=== PATIENT | female | born 1955 | race Caucasian/White ===

== ENCOUNTER 2018-03-12 06:59 | Day surgery (SDC) | payer OTHER ==
[~2018-03-12] VITALS: Ht 162.6 cm; Wt 98.0 kg
[~2018-03-12 06:59] MED LIST: IBUP800 PO; Venlafaxine HC225 MG PO
== END 2018-03-12 23:04 | disposition home or self-care (01) ==
LOC: ORSCMMR 06:59 → ORD 08:30 → ORSCMMR 23:04
PROVIDERS: Internal Medicine Gastroenterology
PROC: 0DJD8ZZ Inspection of Lower Intestinal Tract, Via Natural or Artificial Opening Endoscopic (ICD-10-PCS; principal; 2018-03-12 08:30)
DX: Z12.11 Encounter for screening for malignant neoplasm of colon (principal); K57.30 Diverticulosis of large intestine without perforation or abscess without bleeding; I10 Essential (primary) hypertension; F32.9 Major depressive disorder, single episode, unspecified; Z79.899 Other long term (current) drug therapy
CPT/HCPCS: J7120

== ENCOUNTER → 2020-09-21 | Outpatient (CLI) | payer MEDICARE, OTHER | LOC: LAB 15:39 → LAB SHORT 15:39 | DX: R82.90 Unspecified abnormal findings in urine (principal) | CPT/HCPCS: 87077; 87086; 87186 ==

== ENCOUNTER → 2020-12-21 | Outpatient (CLI) | payer MEDICARE, OTHER ==
[~2020-12-21] MED LIST changes: +METO25 PO; +POTA10T PO; +XARELTO20 MG PO
== END ==
LOC: LAB SHORT 15:00 → PLD 15:00
DX: C44.519 Basal cell carcinoma of skin of other part of trunk (principal)
CPT/HCPCS: 88305

== ENCOUNTER 2021-02-26 10:03 | Observation (INO) | payer MEDICARE, OTHER ==
[~2021-02-26] VITALS: Ht 162.6 cm; Wt 98.1 kg
[~2021-02-26 10:03] MED LIST changes: -METO25 PO; -POTA10T PO; -XARELTO20 MG PO
[2021-02-26 10:42] LABS: BASOPHILS ABSOLUTE AUTO 0.04 K/mm3 (0.00-0.23); BASOPHILS PERCENT AUTO 0 % (0-2); EOSINOPHILS ABSOLUTE AUTO 0.53 K/mm3 (0.00-0.68); EOSINOPHILS PERCENT AUTO 6 % (0-6); Hematocrit 39.5 % (33.0-51.0); Hemoglobin 13.5 g/dL (11.5-16.0); IMMATURE GRAN ABSOLUTE AUTO 0.02 K/mm3 (0.00-0.10); IMMATURE GRAN PERCENT AUTO 0 % (0-1); LYMPHOCYTES PERCENT AUTO 18 % (21-46); MONOCYTES ABSOLUTE AUTO 0.78 K/mm3 (0.16-1.47); MONOCYTES PERCENT AUTO 8 % (4-13); Mean Corpuscular HGB 30.9 pg (26.0-34.0); Mean Corpuscular HGB Conc 34.2 g/dL (31.5-36.5); Mean Corpuscular Volume 90 fL (80-100); Mean Platelet Volume 10.2 fL (9.1-12.4); NEUTROPHILS ABSOLUTE AUTO 6.19 K/mm3 (1.96-9.15); NEUTROPHILS PERCENT AUTO 67 % (41-73); Platelet Count 308 K/mm3 (150-400); RDW Coefficient Variation 12.6 % (11.7-14.2); Red Blood Cell Count 4.37 M/mm3 (3.80-5.20); White Blood Cell Count 9.26 K/mm3 (4.00-11.30)
[2021-02-26 11:09] LABS: Alanine Aminotransfer (ALT/SGP 26 U/L (12-78); Albumin, Blood 3.7 g/dL (3.4-5.0); Albumin/Globulin Ratio 1.1 (0.8-1.8); Alk Phos 93 U/L (50-136); Anion Gap 5 mmol/L (6-16); Aspartate Aminotrans (AST/SGOT 12 U/L (12-37); Bilirubin, Total 0.3 mg/dL (0.1-1.0); Blood Urea Nitrogen 13 mg/dL (8-24); Bun/Creatinine Ratio 25.1 (12.0-20.0); CO2, Blood 27 mmol/L (21-32); Calcium, Blood 8.3 mg/dL (8.5-10.1); Chloride, Blood 111 mmol/L (98-108); Creatinine, Blood 0.52 mg/dL (0.40-1.00); Globulin, Blood 3.5 g/dL (2.2-4.0); Glomerular Filtration Rate >60 (60-); Glucose, Blood 147 mg/dL (70-99); Magnesium, Blood 2.4 mg/dL (1.6-2.4); Potassium, Blood 3.5 mmol/L (3.5-5.5); Sodium, Blood 143 mmol/L (136-145); Total Protein, Blood 7.2 g/dL (6.4-8.2); Troponin I 0.232 ng/mL (0.000-0.040)
[2021-02-26 14:04] LABS: International Normalized Ratio 0.9; Prothrombin Time Results 9.7 Sec (9.7-11.5)
--- NOTE | 2021-02-26 18:28 | NUR ---
SHIFT SUMMARY PATIENT ARRIVED FROM ED WITH CARDIZEM DRIP AT 10 MG/HR WITH HEART RATE IN 120s-160s. PATIENT IS ALERT AND ORIENTED, DENIES CHEST PAIN/PRESSURE SINCE ARRIVAL TO UNIT. PATIENT IS COOPERATIVE WITH CARE, CALLS APPROPRIATELY. STANDBY ASSIST TO BEDSIDE COMMODE. CARDIZEM TITRATED UP TO 15 MG/HR, BP TOLERATING WELL. HEART RATE REMAINED ELEVATED AT 130s-150s, DR. EDWARDS NOTIFIED AND ORDERS FOR PO METOPROLOL TARTRATE GIVEN. PATIENT CONTINUED TO TOLERATE MEDICATIONS WITH ADEQUATE BLOOD PRESSURE, REMAINED IN 130s SBP. PATIENT'S HEART RATE NOW RUNNING 100s-110s.
[2021-02-27 04:42] LABS: Anion Gap 3 mmol/L (6-16); Blood Urea Nitrogen 19 mg/dL (8-24); Bun/Creatinine Ratio 24.4 (12.0-20.0); CO2, Blood 28 mmol/L (21-32); Calcium, Blood 8.3 mg/dL (8.5-10.1); Chloride, Blood 111 mmol/L (98-108); Creatinine, Blood 0.78 mg/dL (0.40-1.00); Glomerular Filtration Rate >60 (60-); Glucose, Blood 92 mg/dL (70-99); Magnesium, Blood 2.5 mg/dL (1.6-2.4); Potassium, Blood 3.7 mmol/L (3.5-5.5); Sodium, Blood 142 mmol/L (136-145)
--- NOTE | 2021-02-27 05:33 | NUR ---
SHIFT SUMMARY PT AXO. ON SHIFT START, CARDIZEM GTT AT RATE OF 15ML/HR. EVENTUALLY TITRATED OFF WITH CONVERSION TO SR IN THE 60'S. PT HAS MAINTAINED IN SR SINCE CONVERION. VSS POST. ON RA. PT DENYING CP/PRESSURE/SOB THIS SHIFT. OTHERWISE, PT RESTING OFF AND ON T/O SHIFT. WILL CONTINUE TO MONITOR UNTIL SHIFT CHANGE.
[2021-02-27] MEDS ORDERED: METO25 PO (11:56)
[2021-02-27] MEDS ORDERED: XARELTO20 MG PO (11:57)
[2021-02-27] MEDS ORDERED: POTA10T PO (11:58)
--- NOTE | 2021-02-27 12:35 | NUR ---
PATIENT DENIED CHEST PAIN/PRESSURE THIS SHIFT, ALERT AND ORIENTED, VSS. PATIENT PROVIDED DISCHARGE INFO REGARDING FOLLOW UP PLANS, REASONS TO RETURN TO THE HOSPITAL, AND MEDICATION INFORMATION. PATIENT VERBALIZED UNDERSTANDING, NO SIGNS OF ACUTE DISTRESS.
== END 2021-02-27 12:31 | disposition home or self-care (01) ==
LOC: ER 10:03 → ERHOLD 10:04 → PCU 15:33
PROVIDERS: Emergency Medicine; ADMIT Internal Medicine
DX: I48.0 Paroxysmal atrial fibrillation (principal); I21.A1 Myocardial infarction type 2; F32.9 Major depressive disorder, single episode, unspecified; E66.01 Morbid (severe) obesity due to excess calories; Z68.35 Body mass index [BMI] 35.0-35.9, adult
CPT/HCPCS: 36415; 71045; 80048; 80053; 83735; 83880; 84443; 84484; 85025; 85610; 85730; 93005; 93010; 96365; 96366; 96376; 99285-25; A9270; C9113; G0378

== ENCOUNTER 2021-08-31 14:24 | Observation (INO) | payer MEDICARE, OTHER ==
[~2021-08-31] VITALS: Ht 162.6 cm; Wt 97.5 kg
[~2021-08-31 14:24] MED LIST changes: +METO25 PO; +POTA10T PO; +XARELTO20 MG PO
[2021-08-31 15:02] LABS: BASOPHILS ABSOLUTE AUTO 0.08 K/mm3 (0.00-0.23); BASOPHILS PERCENT AUTO 1 % (0-2); EOSINOPHILS ABSOLUTE AUTO 0.29 K/mm3 (0.00-0.68); EOSINOPHILS PERCENT AUTO 3 % (0-6); Hematocrit 39.6 % (33.0-51.0); Hemoglobin 13.2 g/dL (11.5-16.0); IMMATURE GRAN ABSOLUTE AUTO 0.02 K/mm3 (0.00-0.10); IMMATURE GRAN PERCENT AUTO 0 % (0-1); LYMPHOCYTES ABSOLUTE AUTO 2.85 K/mm3 (0.84-5.20); LYMPHOCYTES PERCENT AUTO 31 % (21-46); MONOCYTES ABSOLUTE AUTO 0.79 K/mm3 (0.16-1.47); MONOCYTES PERCENT AUTO 9 % (4-13); Mean Corpuscular HGB 31.1 pg (26.0-34.0); Mean Corpuscular HGB Conc 33.3 g/dL (31.5-36.5); Mean Corpuscular Volume 93 fL (80-100); Mean Platelet Volume 9.8 fL (9.1-12.4); NEUTROPHILS ABSOLUTE AUTO 5.24 K/mm3 (1.96-9.15); NEUTROPHILS PERCENT AUTO 57 % (41-73); Platelet Count 377 K/mm3 (150-400); RDW Coefficient Variation 12.6 % (11.7-14.2); RDW Standard Deviation 43.4 fL (35.1-46.3); Red Blood Cell Count 4.24 M/mm3 (3.80-5.20); White Blood Cell Count 9.27 K/mm3 (4.00-11.30)
[2021-08-31 15:34] LABS: Albumin/Globulin Ratio 1.1 (0.8-1.8); Bilirubin, Total 0.2 mg/dL (0.1-1.0); Bun/Creatinine Ratio 18.8 (12.0-20.0); Calcium, Blood 9.2 mg/dL (8.5-10.1); Creatinine, Blood 0.96 mg/dL (0.40-1.00); Globulin, Blood 3.5 g/dL (2.2-4.0); Potassium, Blood 3.5 mmol/L (3.5-5.5); Total Protein, Blood 7.5 g/dL (6.4-8.2); Troponin I 0.182 ng/mL (0.000-0.040)
[2021-08-31] MEDS ORDERED: METO50ER PO (16:22)
[2021-08-31] MEDS ORDERED: EFFEXOR XR150 MG PO (16:23)
[2021-08-31 18:06] LABS: SARS-Cov-2 (COVID-19) PCR, MMC NEGATIVE (NEGATIVE)
--- NOTE | 2021-08-31 18:40 | NUR ---
PT AOX4 AND COOPERATIVE OF CARE. PT ORIENTED TO ROOM AND CALL LIGHT. BED IN LOWEST POSITION PT INDEPENDENT. PT DENIES ANY PAIN OR DISCOMFORT WILL CONTINUE TO MONITOR.
--- NOTE | 2021-08-31 19:00 | NUR ---
ASSUMED CARE RECEIVED REPORT FROM ANGIE RAMIREZ. PT RESTING, IN NAD. NO ACUTE NEEDS ASSESSED AT THIS TIME, PT SPEAKING TO FAMILY ON PHONE. CALL LIGHT, POSSESSIONS IN REACH.
--- NOTE | 2021-08-31 21:09 | NUR ---
SPOKE TO DR. MONTALVO REGARDING PT'S INCREASED TROPONIN. NO NEW ORDERS RECEIVED. CONTINUE TO MONITOR.
--- NOTE | 2021-09-01 04:27 | NUR ---
SHIFT SUMMARY PT RESTING, IN NAD. NO ACUTE CONCERNS TO REPORT OVERNIGHT, HR AND RHTHYM STABLE OVERNIGHT, NO TELEMETRY EVENTS REPORTED; PT REPORTS "FEELING BACK TO NORMAL." DENIES CP/PRESSURE/SOB. VS REVIEWED,WNL. PT DENIES NEEDS AT THIS TIME. CALL LIGHT, POSSESSIONS IN REACH, BED IN LOW AND LOCKED POSITION. WILL CONTINUE TO PROVIDE CARE UNTIL REPORT GIVEN TO ONCOMING RN.
[2021-09-01 05:04] LABS: Hematocrit 32.4 % (33.0-51.0); Hemoglobin 10.9 g/dL (11.5-16.0); Mean Corpuscular HGB 31.5 pg (26.0-34.0); Mean Corpuscular HGB Conc 33.6 g/dL (31.5-36.5); Mean Corpuscular Volume 94 fL (80-100); Platelet Count 279 K/mm3 (150-400); RDW Coefficient Variation 12.8 % (11.7-14.2); RDW Standard Deviation 43.8 fL (35.1-46.3); Red Blood Cell Count 3.46 M/mm3 (3.80-5.20); White Blood Cell Count 7.09 K/mm3 (4.00-11.30)
[2021-09-01 05:26] LABS: Anion Gap 5 mmol/L (6-16); Blood Urea Nitrogen 16 mg/dL (8-24); Bun/Creatinine Ratio 22.3 (12.0-20.0); CO2, Blood 26 mmol/L (21-32); Calcium, Blood 8.5 mg/dL (8.5-10.1); Chloride, Blood 112 mmol/L (98-108); Creatinine, Blood 0.72 mg/dL (0.40-1.00); Glomerular Filtration Rate >60 (60-); Glucose, Blood 89 mg/dL (70-99); Potassium, Blood 3.6 mmol/L (3.5-5.5); Sodium, Blood 143 mmol/L (136-145); Troponin I 0.251 ng/mL (0.000-0.040)
--- NOTE | 2021-09-01 13:01 | NUR ---
Pateint is alert and oriented x3 , able to make needs known . Denies any pain . Continue on metoprolol for rate control. vital signs are stable. Independent with ADLS. Denies any pain, headache, dizziness or shortness of breath. Patient discharged home in stable condition and DC instruction was and understood.
== END 2021-09-01 12:19 | disposition home or self-care (01) ==
LOC: ER 14:24 → MEDS 14:25
PROVIDERS: Emergency Medicine; Physician Assistant; ADMIT Internal Medicine
DX: I48.0 Paroxysmal atrial fibrillation (principal); R77.8 Other specified abnormalities of plasma proteins; I10 Essential (primary) hypertension; F32.A Depression, unspecified; E66.01 Morbid (severe) obesity due to excess calories; Z20.822 Contact with and (suspected) exposure to COVID-19; Z79.01 Long term (current) use of anticoagulants; Z68.36 Body mass index [BMI] 36.0-36.9, adult
CPT/HCPCS: 36415; 71045; 80048; 80053; 83735; 84484; 85025; 85027; 93005; 93010; 96374; 96375; 99285-25; A9270; G0378; J7030; U0004

== ENCOUNTER → 2021-09-28 | Outpatient (CLI) | payer MEDICARE, OTHER ==
[~2021-09-28] MED LIST changes: +EFFEXOR XR150 MG PO; +METO50ER PO
== END ==
LOC: LAB 18:22 → LAB SHORT 18:22
DX: R82.998 Other abnormal findings in urine (principal)
CPT/HCPCS: 87077; 87086; 87186

== ENCOUNTER 2022-05-17 08:52 | Emergency (ER) | payer MEDICARE, OTHER ==
[~2022-05-17] VITALS: Ht 154.9 cm; Wt 99.8 kg
[~2022-05-17 08:52] MED LIST changes: +ATOR10 PO; +Aspir 8181 MG PO; +DILTIAZEM 24HR120 M2 PO; +SOTO80 PO
[2022-05-17 10:06] LABS: BASOPHILS ABSOLUTE AUTO 0.05 K/mm3 (0.00-0.23); BASOPHILS PERCENT AUTO 1 % (0-2); EOSINOPHILS ABSOLUTE AUTO 0.34 K/mm3 (0.00-0.68); EOSINOPHILS PERCENT AUTO 5 % (0-6); Hematocrit 38.6 % (33.0-51.0); Hemoglobin 12.6 g/dL (11.5-16.0); IMMATURE GRAN ABSOLUTE AUTO 0.02 K/mm3 (0.00-0.10); IMMATURE GRAN PERCENT AUTO 0 % (0-1); LYMPHOCYTES ABSOLUTE AUTO 2.04 K/mm3 (0.84-5.20); LYMPHOCYTES PERCENT AUTO 30 % (21-46); MONOCYTES ABSOLUTE AUTO 0.72 K/mm3 (0.16-1.47); MONOCYTES PERCENT AUTO 10 % (4-13); Mean Corpuscular HGB 30.3 pg (26.0-34.0); Mean Corpuscular HGB Conc 32.6 g/dL (31.5-36.5); Mean Corpuscular Volume 93 fL (80-100); NEUTROPHILS ABSOLUTE AUTO 3.74 K/mm3 (1.96-9.15); NEUTROPHILS PERCENT AUTO 54 % (41-73); Platelet Count 306 K/mm3 (150-400); RDW Coefficient Variation 12.8 % (11.7-14.2); RDW Standard Deviation 44.1 fL (35.1-46.3); Red Blood Cell Count 4.16 M/mm3 (3.80-5.20); White Blood Cell Count 6.91 K/mm3 (4.00-11.30)
[2022-05-17 10:26] LABS: Albumin, Blood 3.6 g/dL (3.4-5.0); Albumin/Globulin Ratio 1.1 (0.8-1.8); Bilirubin, Total 0.2 mg/dL (0.1-1.0); Bun/Creatinine Ratio 18.7 (12.0-20.0); Calcium, Blood 9.1 mg/dL (8.5-10.1); Creatinine, Blood 0.59 mg/dL (0.40-1.00); Globulin, Blood 3.4 g/dL (2.2-4.0); Potassium, Blood 4.6 mmol/L (3.5-5.5)
== END 2022-05-17 10:56 | disposition home or self-care (01) ==
LOC: ER 08:52
PROVIDERS: Emergency Medicine
DX: I48.91 Unspecified atrial fibrillation (principal); I10 Essential (primary) hypertension; Z79.899 Other long term (current) drug therapy; Z79.82 Long term (current) use of aspirin; Z79.01 Long term (current) use of anticoagulants
CPT/HCPCS: 36415; 71045; 80053; 85025; 93005; 93010

== ENCOUNTER 2022-09-08 08:04 | Observation (INO) | payer MEDICARE, OTHER ==
[~2022-09-08] VITALS: Ht 162.6 cm; Wt 98.6 kg
[2022-09-08 08:50] LABS: BASOPHILS ABSOLUTE AUTO 0.06 K/mm3 (0.00-0.23); BASOPHILS PERCENT AUTO 1 % (0-2); EOSINOPHILS ABSOLUTE AUTO 0.28 K/mm3 (0.00-0.68); EOSINOPHILS PERCENT AUTO 3 % (0-6); Hematocrit 39.8 % (33.0-51.0); Hemoglobin 12.9 g/dL (11.5-16.0); IMMATURE GRAN ABSOLUTE AUTO 0.02 K/mm3 (0.00-0.10); IMMATURE GRAN PERCENT AUTO 0 % (0-1); LYMPHOCYTES ABSOLUTE AUTO 1.69 K/mm3 (0.84-5.20); LYMPHOCYTES PERCENT AUTO 19 % (21-46); MONOCYTES ABSOLUTE AUTO 0.67 K/mm3 (0.16-1.47); MONOCYTES PERCENT AUTO 8 % (4-13); Mean Corpuscular HGB 30.4 pg (26.0-34.0); Mean Corpuscular HGB Conc 32.4 g/dL (31.5-36.5); Mean Corpuscular Volume 94 fL (80-100); Mean Platelet Volume 9.9 fL (9.1-12.4); NEUTROPHILS ABSOLUTE AUTO 5.97 K/mm3 (1.96-9.15); NEUTROPHILS PERCENT AUTO 69 % (41-73); Platelet Count 333 K/mm3 (150-400); RDW Coefficient Variation 13.2 % (11.7-14.2); RDW Standard Deviation 45.2 fL (35.1-46.3); Red Blood Cell Count 4.25 M/mm3 (3.80-5.20); White Blood Cell Count 8.69 K/mm3 (4.00-11.30)
[2022-09-08 09:08] LABS: Albumin, Blood 3.5 g/dL (3.4-5.0); Bilirubin, Total 0.4 mg/dL (0.1-1.0); Calcium, Blood 8.4 mg/dL (8.5-10.1); Creatinine, Blood 0.58 mg/dL (0.40-1.00); Globulin, Blood 3.5 g/dL (2.2-4.0); Potassium, Blood 3.9 mmol/L (3.5-5.5)
--- NOTE | 2022-09-08 14:57 | NUR ---
Pt converted to normal sinus rhtyhm.
--- NOTE | 2022-09-08 17:38 | NUR ---
Ambulatory from the recliner to the bathroom to void. Used the walker and one staff member needed for minimal assistance. She denies any dyspnea and no shortness of breath was noted with the activity to and from the toilet. Sitting in recliner now, dinner tray with soft bite sized food provided for her.
[2022-09-09 04:18] LABS: Hematocrit 36.3 % (33.0-51.0); Hemoglobin 11.7 g/dL (11.5-16.0); Mean Corpuscular HGB 30.2 pg (26.0-34.0); Mean Corpuscular HGB Conc 32.2 g/dL (31.5-36.5); Mean Corpuscular Volume 94 fL (80-100); Mean Platelet Volume 9.8 fL (9.1-12.4); Platelet Count 318 K/mm3 (150-400); RDW Coefficient Variation 13.2 % (11.7-14.2); RDW Standard Deviation 45.2 fL (35.1-46.3); Red Blood Cell Count 3.88 M/mm3 (3.80-5.20); White Blood Cell Count 7.53 K/mm3 (4.00-11.30)
[2022-09-09 04:53] LABS: Bun/Creatinine Ratio 37.3 (12.0-20.0); Calcium, Blood 9.1 mg/dL (8.5-10.1); Creatinine, Blood 0.62 mg/dL (0.40-1.00); Magnesium, Blood 2.2 mg/dL (1.6-2.4); Potassium, Blood 3.7 mmol/L (3.5-5.5)
--- NOTE | 2022-09-09 05:11 | NUR ---
SHIFT SUMMARY PT IS A/Ox4 AND IS COOPERATIVE WITH THE CARE GIVEN BY STAFF. DURING ADMISSION, PT WAS AFIB WITH RVR, BUT CONVERTED TO SR ON 09/08. EKG THIS AM WAS UNREMARKABLE WITH MINIMAL CHANGES TO EKG'S DONE DURING HER STAY. PT HAS NOT REPORTED ANY CP OR CHEST PRESSURE T/O THE SHIFT AND HER BP/HR CONTINUE TO BE STABLE. PT IS AMBULTORY WITH NO SIGNS OF SOB OR DYSPNEA WITH AMBULATION. PT REPORT GIVEN BY DAYSHIFT NURSES, PT MIGHT GO HOME TODAY 09/09 DUE TO NO ACUTE CHANGES. VSS/NADN T/O THE SHIFT
[2022-09-09] MEDS ORDERED: Acetaminophen650 M1 PO (15:05)
== END 2022-09-09 15:29 | disposition home or self-care (01) ==
LOC: ER 08:04 → PCU 08:05
PROVIDERS: Nurse Practitioner Acute Care; Physician Assistant; ADMIT Internal Medicine
DX: I48.0 Paroxysmal atrial fibrillation (principal); I21.A1 Myocardial infarction type 2; I25.10 Atherosclerotic heart disease of native coronary artery without angina pectoris; F32.A Depression, unspecified; F41.9 Anxiety disorder, unspecified; Z79.01 Long term (current) use of anticoagulants
CPT/HCPCS: 36415; 71045; 80048; 80053; 83735; 83880; 84484; 85025; 85027; 93005; 93010; A9270; G0378

== ENCOUNTER 2023-03-31 21:49 | Inpatient (IN) | payer MEDICARE, OTHER ==
[~2023-03-31] VITALS: Ht 162.6 cm; Wt 98.3 kg
[~2023-03-31 21:49] MED LIST changes: +Acetaminophen650 M1 PO
[2023-03-31 22:11] LABS: BASOPHILS ABSOLUTE AUTO 0.06 K/mm3 (0.00-0.23); BASOPHILS PERCENT AUTO 1 % (0-2); EOSINOPHILS ABSOLUTE AUTO 0.29 K/mm3 (0.00-0.68); EOSINOPHILS PERCENT AUTO 3 % (0-6); Hematocrit 37.9 % (33.0-51.0); Hemoglobin 12.4 g/dL (11.5-16.0); IMMATURE GRAN ABSOLUTE AUTO 0.02 K/mm3 (0.00-0.10); IMMATURE GRAN PERCENT AUTO 0 % (0-1); LYMPHOCYTES ABSOLUTE AUTO 2.64 K/mm3 (0.84-5.20); LYMPHOCYTES PERCENT AUTO 27 % (21-46); MONOCYTES PERCENT AUTO 9 % (4-13); Mean Corpuscular HGB 30.3 pg (26.0-34.0); Mean Corpuscular HGB Conc 32.7 g/dL (31.5-36.5); Mean Corpuscular Volume 93 fL (80-100); Mean Platelet Volume 9.4 fL (9.1-12.4); NEUTROPHILS ABSOLUTE AUTO 6.04 K/mm3 (1.96-9.15); NEUTROPHILS PERCENT AUTO 61 % (41-73); Platelet Count 367 K/mm3 (150-400); RDW Coefficient Variation 12.6 % (11.7-14.2); RDW Standard Deviation 42.9 fL (35.1-46.3); Red Blood Cell Count 4.09 M/mm3 (3.80-5.20); White Blood Cell Count 9.95 K/mm3 (4.00-11.30)
[2023-03-31 22:31] LABS: Albumin, Blood 3.8 g/dL (3.4-5.0); Albumin/Globulin Ratio 1.1 (0.8-1.8); Bilirubin, Total 0.2 mg/dL (0.1-1.0); Bun/Creatinine Ratio 43.8 (12.0-20.0); Calcium, Blood 8.8 mg/dL (8.5-10.1); Creatinine, Blood 0.64 mg/dL (0.40-1.00); Globulin, Blood 3.5 g/dL (2.2-4.0); Total Protein, Blood 7.3 g/dL (6.4-8.2)
[2023-04-01] VITALS (12 sets, daily range): BP systolic 86–135; BP diastolic 51–123
[2023-04-01] MEDS ORDERED: Magnesium500 M1 PO (01:57)
[2023-04-01] MEDS ORDERED: CENTRUM SILVER1 EAC2 PO (01:58)
[2023-04-01] MEDS ORDERED: [UNRECOGNIZED DRUG - OTHER] PO (01:58)
[2023-04-01] MEDS ORDERED: CLOBETASOL EMOL15 G1 (01:59)
[2023-04-01] MEDS ORDERED: Ketoconazole120 ML TOP (01:59)
[2023-04-01 04:52] LABS: BASOPHILS ABSOLUTE AUTO 0.08 K/mm3 (0.00-0.23); BASOPHILS PERCENT AUTO 1 % (0-2); EOSINOPHILS ABSOLUTE AUTO 0.26 K/mm3 (0.00-0.68); EOSINOPHILS PERCENT AUTO 3 % (0-6); Hematocrit 37.7 % (33.0-51.0); Hemoglobin 12.5 g/dL (11.5-16.0); IMMATURE GRAN ABSOLUTE AUTO 0.03 K/mm3 (0.00-0.10); IMMATURE GRAN PERCENT AUTO 0 % (0-1); LYMPHOCYTES ABSOLUTE AUTO 2.25 K/mm3 (0.84-5.20); LYMPHOCYTES PERCENT AUTO 23 % (21-46); MONOCYTES ABSOLUTE AUTO 0.74 K/mm3 (0.16-1.47); MONOCYTES PERCENT AUTO 7 % (4-13); Mean Corpuscular HGB 30.8 pg (26.0-34.0); Mean Corpuscular HGB Conc 33.2 g/dL (31.5-36.5); Mean Corpuscular Volume 93 fL (80-100); Mean Platelet Volume 10.2 fL (9.1-12.4); NEUTROPHILS ABSOLUTE AUTO 6.59 K/mm3 (1.96-9.15); NEUTROPHILS PERCENT AUTO 66 % (41-73); Platelet Count 394 K/mm3 (150-400); RDW Coefficient Variation 12.8 % (11.7-14.2); RDW Standard Deviation 43.9 fL (35.1-46.3); Red Blood Cell Count 4.06 M/mm3 (3.80-5.20); White Blood Cell Count 9.95 K/mm3 (4.00-11.30)
[2023-04-01 05:20] LABS: Albumin, Blood 3.7 g/dL (3.4-5.0); Albumin/Globulin Ratio 1.1 (0.8-1.8); Bilirubin, Total 0.2 mg/dL (0.1-1.0); Calcium, Blood 8.3 mg/dL (8.5-10.1); Creatinine, Blood 0.57 mg/dL (0.40-1.00); Globulin, Blood 3.3 g/dL (2.2-4.0); Magnesium, Blood 2.4 mg/dL (1.6-2.4); Potassium, Blood 3.8 mmol/L (3.5-5.5); Thyroid Stimulating Hormone 3.03 uIU/mL (0.360-4.800)
--- NOTE | 2023-04-01 07:17 | NUR ---
Received report from Noc RN. Patient is sleeping and arouses slowly with clear speech. She was alert enough to comunicate her needs. She is on RA and sats >90%. She has 2 IV's: 20ga IV in RA and is infusing Cardizem at 5 mg/hr and 20ga RAC and is flushed and SL'd. She is up with assist to bathroom. MAEW. Denies any current needs. She remains in A-fib low 100's.
--- NOTE | 2023-04-01 11:20 | NUR ---
Dr has been by and no new orders. She has been anxious and states not able to sleep. When Dr came by stated to give Tylenol but when went in room patient sleeping and did not want to awake. She remians on cardizem at 5mg/hr. She continues on RA and sats >90%. She remains independent in room.
--- NOTE | 2023-04-01 15:37 | NUR ---
No significant changes with patient. She remains in A-fib and is currently 130-140 and increaseing Cardizem gtt to 10 mg/hr and will monitor BP chganges. She remains on RA and sats >90%. She continues to be independent in room. I am allowing her to sleep with lights off as she states has been unable to sleep at night. VINAYAK. She calls approppriately for assisstance.
--- NOTE | 2023-04-01 18:44 | NUR ---
Patient remains in sinus arrythmia and has rates in the 80's. She is alert and oriented and is independent in room to bathroom and positioning. She tolerated dinner well. She is SL'd.
--- NOTE | 2023-04-01 23:00 | NUR ---
ASSUMPTION OF CARE: PATIENT IS ALERT AND ORIENTED, PLEASANT COOPERATIVE WITH CARE, CARDIZEM OFF AND IN SINUS ARRHYTHMIA WITH BIGEM AND PVC'S FROM THIS RN REVIEWING. VSS WILL CONTINUE TO MONITOR UNTIL SHFIT CHANGE, DENIES CHEST PAIN PRESSURE OR SOB. BM TONIGHT, ENDORSES SOME VERY MINOR DIFFICULTY DENIES NEED FOR BOWEL CARE. PATIENT INDEPENDENT IN THE ROOM RECIEVED SOTALOL THIS EVENING, WHICH IS HOME MED. TELE MONITORING IN PLACE, WILL MONITOR ANY CHANGES AND QT. PATIENT HAS DO NOT WAKE UNTIL [address] WILL MONITOR PRN AND REQUESTS. NO CONCERNS FROM THIS RN AT THIS TIME
[2023-04-02 07:30] LABS: Bun/Creatinine Ratio 36.4 (12.0-20.0); Calcium, Blood 8.8 mg/dL (8.5-10.1); Creatinine, Blood 0.58 mg/dL (0.40-1.00); Potassium, Blood 4.2 mmol/L (3.5-5.5)
[2023-04-02 08:08] VITALS: BP 118/76
[2023-04-02] MEDS ORDERED: Cardizem LA240 MG PO (12:49)
--- NOTE | 2023-04-02 13:27 | NUR ---
DISCHARGE SUMMARY Pt alert, oriented x4; calm and cooperative with care. Pt tearful at times, expessing the desire to go home t/o shift. Pt resting in bed, up ind in room. Pt denies pain, chest pain/pressure, sob, nausea, dizziness and numb/tingling. Tele sinus rhythm 60's, bp stable. Spo2 >90% on ra, breathing even and unlabored. abd soft, nontender, normoactive bt. Other vss. No other acute changes noted. Pt requesting a medication to take home to take tomorrow, pt educated on policy, and told we are unable to send medications home at this time. Pt tearful, stating she was told by the dr to make sure she has a dose of medciation to take home, discussed with Dr Angi Dr in to see patient, states he just wanted a dose today, pt had dose this am, ok to take tomorrow when she picks up from pharmacy. Written prescription given to patient in case her pharamcy does not carry this medications, also faxed to [facility] to sisal picker tomorrow. Pt left on via wheelchair at approx 1330.
== END 2023-04-02 13:30 | disposition home or self-care (01) | DRG 310 ==
LOC: ER 21:49 → ERHOLD 21:50 → PCU 04-01 03:12
PROVIDERS: Emergency Medicine; Family Medicine; ADMIT Student in an Organized Health Care Education/Training Program
DX: I48.91 Unspecified atrial fibrillation (principal); I10 Essential (primary) hypertension; I48.92 Unspecified atrial flutter; R77.8 Other specified abnormalities of plasma proteins; F32.A Depression, unspecified; E66.9 Obesity, unspecified; Z98.890 Other specified postprocedural states; Z68.36 Body mass index [BMI] 36.0-36.9, adult; Z79.82 Long term (current) use of aspirin; Z79.01 Long term (current) use of anticoagulants; Z87.19 Personal history of other diseases of the digestive system; Z79.899 Other long term (current) drug therapy
CPT/HCPCS: 36415; 71046; 80048; 80053; 83735; 84443; 84484; 85025; 93005; 93010; 96365; 96366; 96368; 96376; 99285-25; A9270; G0378; J3475; J7030

== ENCOUNTER 2023-05-03 11:44 | Inpatient (IN) | payer MEDICARE, OTHER ==
[~2023-05-03] VITALS: Ht 162.6 cm; Wt 97.5 kg
[~2023-05-03 11:44] MED LIST changes: +CENTRUM SILVER1 EAC2 PO; +CLOBETASOL EMOL15 G1; +Cardizem LA240 MG PO; +Ketoconazole120 ML TOP; +Magnesium500 M1 PO; +[UNRECOGNIZED DRUG - OTHER] PO
[2023-05-03 12:46] LABS: BASOPHILS ABSOLUTE AUTO 0.04 K/mm3 (0.00-0.23); BASOPHILS PERCENT AUTO 1 % (0-2); EOSINOPHILS ABSOLUTE AUTO 0.25 K/mm3 (0.00-0.68); EOSINOPHILS PERCENT AUTO 4 % (0-6); Hematocrit 39.5 % (33.0-51.0); Hemoglobin 12.9 g/dL (11.5-16.0); IMMATURE GRAN ABSOLUTE AUTO 0.01 K/mm3 (0.00-0.10); IMMATURE GRAN PERCENT AUTO 0 % (0-1); LYMPHOCYTES ABSOLUTE AUTO 2.09 K/mm3 (0.84-5.20); LYMPHOCYTES PERCENT AUTO 29 % (21-46); MONOCYTES ABSOLUTE AUTO 0.47 K/mm3 (0.16-1.47); MONOCYTES PERCENT AUTO 7 % (4-13); Mean Corpuscular HGB Conc 32.7 g/dL (31.5-36.5); Mean Corpuscular Volume 92 fL (80-100); NEUTROPHILS ABSOLUTE AUTO 4.32 K/mm3 (1.96-9.15); NEUTROPHILS PERCENT AUTO 60 % (41-73); Platelet Count 399 K/mm3 (150-400); RDW Coefficient Variation 13.2 % (11.7-14.2); RDW Standard Deviation 44.5 fL (35.1-46.3); White Blood Cell Count 7.18 K/mm3 (4.00-11.30)
[2023-05-03 12:47] LABS: Albumin, Blood 3.7 g/dL (3.4-5.0); Albumin/Globulin Ratio 1.1 (0.8-1.8); Bilirubin, Total 0.3 mg/dL (0.1-1.0); Bun/Creatinine Ratio 18.9 (12.0-20.0); Calcium, Blood 8.8 mg/dL (8.5-10.1); Creatinine, Blood 0.69 mg/dL (0.40-1.00); Globulin, Blood 3.4 g/dL (2.2-4.0); Potassium, Blood 4.3 mmol/L (3.5-5.5); Total Protein, Blood 7.1 g/dL (6.4-8.2)
[2023-05-03 15:54] LABS: CHOL/HDL RATIO 3.5; Cholesterol 199 mg/dL (50-200); HDL Cholesterol 57 mg/dL (>39); LDL/HDL RATIO 2.3; Low Density Lipoprotein Chol 129 mg/dL (0-110); Triglycerides 65 mg/dL (30-160); Very Low Density Lipoprot Chol 13 mg/dL (6-32)
[2023-05-03 16:07] LABS: International Normalized Ratio 1.25
[2023-05-03 16:59] VITALS: BP 118/81
[2023-05-03 20:25] VITALS: BP 136/77
[2023-05-03 23:16] VITALS: BP 124/55
[2023-05-04 03:41] VITALS: BP 116/67
[2023-05-04 04:10] LABS: BASOPHILS ABSOLUTE AUTO 0.05 K/mm3 (0.00-0.23); BASOPHILS PERCENT AUTO 1 % (0-2); EOSINOPHILS PERCENT AUTO 3 % (0-6); Hemoglobin 11.6 g/dL (11.5-16.0); IMMATURE GRAN ABSOLUTE AUTO 0.01 K/mm3 (0.00-0.10); IMMATURE GRAN PERCENT AUTO 0 % (0-1); LYMPHOCYTES ABSOLUTE AUTO 2.22 K/mm3 (0.84-5.20); LYMPHOCYTES PERCENT AUTO 26 % (21-46); MONOCYTES ABSOLUTE AUTO 0.79 K/mm3 (0.16-1.47); MONOCYTES PERCENT AUTO 9 % (4-13); Mean Corpuscular HGB 30.5 pg (26.0-34.0); Mean Corpuscular HGB Conc 33.1 g/dL (31.5-36.5); Mean Corpuscular Volume 92 fL (80-100); Mean Platelet Volume 9.7 fL (9.1-12.4); NEUTROPHILS ABSOLUTE AUTO 5.33 K/mm3 (1.96-9.15); NEUTROPHILS PERCENT AUTO 61 % (41-73); Platelet Count 330 K/mm3 (150-400); RDW Coefficient Variation 13.2 % (11.7-14.2); RDW Standard Deviation 44.8 fL (35.1-46.3)
[2023-05-04 04:30] LABS: Bun/Creatinine Ratio 27.8 (12.0-20.0); Calcium, Blood 8.2 mg/dL (8.5-10.1); Creatinine, Blood 0.79 mg/dL (0.40-1.00); Potassium, Blood 4.1 mmol/L (3.5-5.5)
--- NOTE | 2023-05-04 05:34 | NUR ---
Shift Summary PT IS A&OX4, IND IN THE ROOM, AND HAS BEEN NPO SINCE 0000 FOR A STRESS TEST. PT WAS IRRITABLE AT THE BEGINNING OF THE NIGHT BECAUSE SHE WANTS TO GO HOME AND WAS IRRITATED ABOUT THE TIMING OF HER MEDICATIONS. SHE DID NOT WANT TO BE WOKEN UP TONIGHT SO WE HAVE CHECKED ON HER AND GOTTEN VITALS QUIETLY DURING THE NIGHT. ON TELE THE PT HAS BEEN SR 50 S-90 S W/ PAC S, PVC S AND A FEW BUNDLE FLIPS. SHE DENIES ANY ANGINA. SHE HAS DENIED ANY SOB AND HAS BEEN ON ROOM AIR THE ENTIRE SHIFT. NO ACUTE EVENTS. BED IN LOW, CALL LIGHT IN REACH. SEE NOTES FOR ANY UPDATES.
[2023-05-04 07:35] VITALS: BP 128/60
[2023-05-04 16:24] VITALS: BP 144/81
--- NOTE | 2023-05-04 16:37 | NUR ---
PT ARRIVED TO UNIT FROM PCU. TRANSFERRED INDEPENDENTLY FROM TO BED. LCA. HRR. DIRECTOR OF HOME CARE HOSPICE CALLED AND CONFIRMED NEW ROOM ASSIGNMENT. PT A&OX4. MAKING PHONE CALL W/CELL PHONE. CALL LIGHT IN REACH. ORIENTED TO ROOM.
--- NOTE | 2023-05-04 17:08 | NUR ---
ECHO IN TO SEE PT.
[2023-05-04 20:27] VITALS: BP 122/50
[2023-05-04 23:30] VITALS: BP 128/88
[2023-05-04 23:32] VITALS: BP 116/81
[2023-05-05] VITALS (20 sets, daily range): BP systolic 84–148; BP diastolic 67–98
[2023-05-05 00:39] LABS: Hematocrit 37.4 % (33.0-51.0); Hemoglobin 12.7 g/dL (11.5-16.0); Mean Platelet Volume 10.1 fL (9.1-12.4); Platelet Count 328 K/mm3 (150-400)
[2023-05-05 01:14] LABS: BASOPHILS ABSOLUTE AUTO 0.05 K/mm3 (0.00-0.23); BASOPHILS PERCENT AUTO 1 % (0-2); EOSINOPHILS ABSOLUTE AUTO 0.45 K/mm3 (0.00-0.68); EOSINOPHILS PERCENT AUTO 5 % (0-6); Hematocrit 37.3 % (33.0-51.0); Hemoglobin 12.5 g/dL (11.5-16.0); IMMATURE GRAN ABSOLUTE AUTO 0.02 K/mm3 (0.00-0.10); IMMATURE GRAN PERCENT AUTO 0 % (0-1); LYMPHOCYTES PERCENT AUTO 35 % (21-46); MONOCYTES ABSOLUTE AUTO 0.77 K/mm3 (0.16-1.47); MONOCYTES PERCENT AUTO 9 % (4-13); Mean Corpuscular HGB 30.2 pg (26.0-34.0); Mean Corpuscular HGB Conc 33.5 g/dL (31.5-36.5); Mean Corpuscular Volume 90 fL (80-100); Mean Platelet Volume 9.7 fL (9.1-12.4); NEUTROPHILS ABSOLUTE AUTO 4.37 K/mm3 (1.96-9.15); NEUTROPHILS PERCENT AUTO 50 % (41-73); Platelet Count 342 K/mm3 (150-400); RDW Coefficient Variation 13.1 % (11.7-14.2); RDW Standard Deviation 43.3 fL (35.1-46.3); Red Blood Cell Count 4.14 M/mm3 (3.80-5.20); White Blood Cell Count 8.76 K/mm3 (4.00-11.30)
[2023-05-05 01:25] LABS: Albumin, Blood 3.6 g/dL (3.4-5.0); Albumin/Globulin Ratio 1.1 (0.8-1.8); Bilirubin, Total 0.2 mg/dL (0.1-1.0); Bun/Creatinine Ratio 30.4 (12.0-20.0); Calcium, Blood 9.1 mg/dL (8.5-10.1); Creatinine, Blood 0.69 mg/dL (0.40-1.00); Globulin, Blood 3.2 g/dL (2.2-4.0); Magnesium, Blood 2.3 mg/dL (1.6-2.4); Potassium, Blood 3.8 mmol/L (3.5-5.5); Total Protein, Blood 6.8 g/dL (6.4-8.2)
[2023-05-05] MEDS ORDERED: CLON1 PO (01:49)
--- NOTE | 2023-05-05 02:43 | NUR ---
EVENTS TIMELINE: 2129-CONTACTED MD REGARDING PATIENTS HOME MED LIST. PT STATES SHE TAKES CARDIZEM 120MG SR NIGHTLY, PO MEDICATION WAS NOT ORDERED UPON DCING IV CARDIZEM. NO ORDERS RECEIVED AT THIS TIME. 2199-TELE NOTIFIED RN OF HR SUSTAINING 130-140'S. MD NOTIFIED, ORDERS RECEIVED FOR HOME DOSE OF CARDIZEM. 2299-CONTACTED MD DUE TO HR STILL SUSTAINING 130-140'S. ORDERS RECEIVED FOR 2.5MG METOPROLOL IV PUSH. MEDICATION GIVEN. 002-NO CHANGE TO HR/MD AWARE. ORDERS RECEIVED. CARDIZEM GIVEN, SEE MAR. 010-NO CHANGE TO HR/RHYTHM. PATIENT STATES SHE IS VERY ANXIOUS AND FORGOT TO TELL AN MD ABOUT HOME ANXIETY MEDS. ORDERS RECEIVED FOR ATIVAN. 0125-ATIVAN GIVEN. NO CHANGE TO HR/RHYTHM. MD AWARE. 0235-ORDERS TO TRANSFER PATIENT RECEIVED. RHYTHM CONTINUES TO JUMP FROM ST TO A FIB, HR SUSTAINING 130-140'S NO CHANGE UPON MEDICATION ADMINISTRATION.
--- NOTE | 2023-05-05 03:52 | NUR ---
ASSUMED CARE PT ARRIVED ON UNIT AT 0310. PT IS A&O X4; SPO2 >92% ON RA; MAP <65; HR IN THE 130-140'S. CURRENTLY ON HEPARIN AND CARDIZEM (SEE FLOWSHEET FOR RATES). PT DENIES CP AND NAUSEA; STATES SHE IS MILDLY SOB AND HAS BEEN SINCE ARRIVING TO THE HOSPITAL. PT IS ANXIOUS AND DOES NOT TOLERATE INTERVENTIONS WELL. UP TO BEDSIDE COMMODE W/ NO ISSUES. DENIED DIZZINESS/LIGHTHEADEDNESS. PT EXPRESSES FRUSTRATION AT CONSTANT HOSPITALIZATIONS AND "POKES" (LAB DRAWS, IV STARTS, ETC.); REASSURED AND EDUCATED PT ON IMPORTANCE OF THESE PROCEDURES. PT IS CURRENTLY RESTING QUIETLY.
--- NOTE | 2023-05-05 06:29 | NUR ---
SHIFT SUMMARY PT REMAINS A&O X4; SPO2 >92% ON RA; MAP >65; HR IN THE 80-90'S. PT WAS OOB TO BEDSIDE COMMODE ONCE W/O NOTIFYING THIS RN D/T NOT FINDING HER CALL LIGHT; REORIENTED PT TO CALL LIGHT AND EDUCATED ON IMPORTANCE OF USING CALL LIGHT BEFORE GETTING OUT OF BED. NO ACUTE EVENTS OVERNIGHT. POTASSIUM RUNNING PER ORDER. HEPARIN AND CARDIZEM RUNNING PER ORDER
--- NOTE | 2023-05-05 09:17 | NUR ---
Assumed care of pt at 0715. Bedside report received from Noel Arriaga RN. Pt A&O x 4. Answers questions, follows commands, verbalizes needs. Pleasant and cooperative with care. SpO2 90% or greater RA. Afib per monitor, rate 90s at rest and 140s with activity. Cardizem drip at 20 mg/hr. NPO pending nuc med injection for stress test.
--- NOTE | 2023-05-05 14:34 | NUR ---
Transferred patient to PCU 6 at 1150. Pt transferred via wheelchair accompanied by this RN. Pt's sister in law at bedside. Chart, medications, belongings transferred with patient.
--- NOTE | 2023-05-05 18:15 | NUR ---
SHIFT SUMMARY PT TRANSFERED TO PCU06 AT 1150 WITH ALL BELONGINGS FROM ICU01. PT PLACED ON TELEMETRY MONITORING AND DENIES ANY COMPLAINTS AT THIS TIME. PT DOES VERBALIZE FRUSTRATION ABOUT HER AFIB RETURNING AND DIFFICULTIES TOLERATING HER MEDICATIONS. DR BROOKS AT BEDSIDE LATE THIS AFTERNOON TO DISCUSS. THIS RN PROVIDED THERAPUETIC LISTENING AND COMMUNICATION, REINFORCED PT'S PLAN TO SEEK FURTHER CARE FOR HER AFIB, SUCH ANOTHER ABLATION IN THE FUTURE. PT STATES SHE HAS GOOD FAMILY SUPPORT IN [place] AND MAY PERSUE TREATMENT THERE. PT SEEMS MORE CALM AND HOPEFUL THIS EVENING. HR CONTINUES TO BE ELEVATED, AFIB/FLUTTER HR 120-140s. PT IS ABLE TO USE CALL LIGHT FOR NEEDS, CALL LIGHT IN REACH, WILL CONTINUE TO MONITOR AND GIVE REPORT TO NOC SHIFT RN.
--- NOTE | 2023-05-05 19:58 | NUR ---
ASSUMPTION OF CARE ASSUMED CARE OF PATIENT AT 1900. PATIET ALERT AND ORIENTED, ABLE TO MAKE NEEDS KNOWN. HR AFIB 148, ALL OTHER VITALS STABLE. INDEPENDENT IN THE ROOM. PATIENT REPORTING ANXIOUSNESS, REQUESTING AT HOME KLONOPIN. GAVE 2100 [address] EARLY D/T INCREASED HR WHILE PATIENT RESTING, SEE EMAR. CALL PLACED TO RESIDENT REGARDING PATIENT'S HR AND REQUEST FOR KLONOPIN. ORDERS FOR OT IV PUSH OF CARDIZEM AND TO RESTART HOME KLONOPIN.
[2023-05-06 00:15] VITALS: BP 109/75
[2023-05-06 04:56] VITALS: BP 105/76
--- NOTE | 2023-05-06 05:52 | NUR ---
SHIFT SUMMARY PATIENT ALERT AND ORIENTED x4, ABLE TO MAKE NEEDS KNOWN TO STAFF. PATIENT CONVERTED TO SINUS RHYTHM AT 0227, BP REMAINS STABLE AND PATIENT CONTINUES TO BE ON RA. PATIENT INDEPENDENT IN THE ROOM. PATIENT ANXIOUS AT START OF SHIFT BUT WAS EVENTUALLY ABLE TO GET GOOD AMOUNT OF SLEEP THIS SHIFT. NO OTHER CHANGES, WILL REPORT TO DAY SHIFT RN.
[2023-05-06 08:13] VITALS: BP 112/89
--- NOTE | 2023-05-06 10:20 | NUR ---
ASSUMED CARE OF PT AT 0700 THIS AM. THIS RN AT BEDSIDE WHILE DR BROOKS SPOKE WITH HER. PT EXPRESSED THAT SHE FELT CARDIZEM CAUSED "MY HEART TO GO TOO SLOW, AND I DIDN'T HAVE ANY ENERGY." HELD CARDIZEM THIS AM PER DR BROOKS'S VERBAL ORDER. PT HAS REMAINED RATE CONTROLLED SR AND PT REQUESTS TO BE DISCHARGED. DR BROOKS NOTIFIED AND PLACED DISCHARGE ORDERS PLACED. ALL DISCHARGE TEACHING REVIEWED WITH PT, INCLUDING MAKING FOLLOW UP APPOINTMENTS WITH HER [facility] CHARGER OFFICE AND HER PCP. NO MEDICATION CHANGES AND NO MEDICATION PRESCRIPTIONS WERE SENT. PT VERBALIZES UNDERSTANDING AND HAS NO QUESTIONS OR CONCERNS, IVX2 REMOVED BOTH WNL, ALL BELONGINGS SENT HOME WITH PT. NO FURTHER DISCHARGE NEEDS IDENTIFIED.
== END 2023-05-06 10:24 | disposition home or self-care (01) | DRG 282 ==
LOC: ER 11:44 → PCU 15:06 → ER 15:06 → PCU 16:45 → ICUE 05-04 15:04 → PCU 05-04 15:04 → SURS 05-04 16:36 → ICUE 05-05 03:13 → PCU 05-05 12:00
PROVIDERS: Internal Medicine; Physician Assistant; ADMIT Internal Medicine
DX: I48.0 Paroxysmal atrial fibrillation (principal); I21.A1 Myocardial infarction type 2; F41.9 Anxiety disorder, unspecified; F32.A Depression, unspecified; R77.8 Other specified abnormalities of plasma proteins; F43.10 Post-traumatic stress disorder, unspecified; E66.9 Obesity, unspecified; R79.0 Abnormal level of blood mineral; Z79.899 Other long term (current) drug therapy; Z79.01 Long term (current) use of anticoagulants; Z79.82 Long term (current) use of aspirin; Z98.890 Other specified postprocedural states
CPT/HCPCS: 36415; 71046; 78452; 80048; 80053; 80061; 82330; 83735; 83880; 84484; 85014; 85018; 85025; 85049; 85610; 85730; 93005; 93010; 93017; 93306; 96365; 96375; 96376; 97110; 97162; 99285-25; A9270; A9500; G0378; J0706; J1644; J2060; J2785; J3480; J7050

== ENCOUNTER 2023-11-21 14:05 | Emergency (ER) | payer OTHER, MEDICARE ==
[~2023-11-21] VITALS: Ht 162.6 cm; Wt 99.8 kg
[~2023-11-21 14:05] MED LIST changes: +CLON1 PO
[2023-11-21 14:22] VITALS: BP 151/94
[2023-11-21] MEDS ORDERED: IBUP600 PO (15:40)
[2023-11-21] MEDS ORDERED: Norco 5-325 Ta1 EACH PO (15:40)
== END 2023-11-21 16:19 | disposition home or self-care (01) ==
LOC: ER 14:05
DX: S22.42XA Multiple fractures of ribs, left side, initial encounter for closed fracture (principal); R51.9 Headache, unspecified; M54.50 Low back pain, unspecified; V89.2XXA Person injured in unspecified motor-vehicle accident, traffic, initial encounter; I48.91 Unspecified atrial fibrillation; F32.A Depression, unspecified; F41.9 Anxiety disorder, unspecified; Z79.899 Other long term (current) drug therapy; Z79.01 Long term (current) use of anticoagulants; Z79.82 Long term (current) use of aspirin
CPT/HCPCS: 70450; 71101; 72100; 99284-25; A9270

== ENCOUNTER → 2024-06-18 | Outpatient (CLI) | payer OTHER, MEDICARE ==
[~2024-06-18] MED LIST changes: +IBUP600 PO; +Norco 5-325 Ta1 EACH PO
[2024-06-18 13:15] LABS: BASOPHILS ABSOLUTE AUTO 0.05 K/mm3 (0.00-0.23); BASOPHILS PERCENT AUTO 1 % (0-2); EOSINOPHILS ABSOLUTE AUTO 0.21 K/mm3 (0.00-0.68); EOSINOPHILS PERCENT AUTO 3 % (0-6); Hematocrit 37.4 % (33.0-51.0); Hemoglobin 12.2 g/dL (11.5-16.0); IMMATURE GRAN ABSOLUTE AUTO 0.01 K/mm3 (0.00-0.10); IMMATURE GRAN PERCENT AUTO 0 % (0-1); LYMPHOCYTES ABSOLUTE AUTO 1.71 K/mm3 (0.84-5.20); LYMPHOCYTES PERCENT AUTO 27 % (21-46); MONOCYTES ABSOLUTE AUTO 0.52 K/mm3 (0.16-1.47); MONOCYTES PERCENT AUTO 8 % (4-13); Mean Corpuscular HGB 30.7 pg (26.0-34.0); Mean Corpuscular HGB Conc 32.6 g/dL (31.5-36.5); Mean Corpuscular Volume 94 fL (80-100); Mean Platelet Volume 10.3 fL (9.1-12.4); NEUTROPHILS ABSOLUTE AUTO 3.77 K/mm3 (1.96-9.15); NEUTROPHILS PERCENT AUTO 60 % (41-73); Platelet Count 327 K/mm3 (150-400); RDW Coefficient Variation 12.9 % (11.7-14.2); RDW Standard Deviation 44.6 fL (35.1-46.3); Red Blood Cell Count 3.97 M/mm3 (3.80-5.20); White Blood Cell Count 6.27 K/mm3 (4.00-11.30)
[2024-06-18 14:30] LABS: Alanine Aminotransfer (ALT/SGP 28 U/L (12-78); Albumin, Blood 3.9 g/dL (3.4-5.0); Albumin/Globulin Ratio 1.2 (0.8-1.8); Alk Phos 77 U/L (50-136); Anion Gap 6 mmol/L (3-11); Aspartate Aminotrans (AST/SGOT 19 U/L (12-37); Bilirubin, Total 0.2 mg/dL (0.1-1.0); Blood Urea Nitrogen 21 mg/dL (8-24); Bun/Creatinine Ratio 33.8 (12.0-20.0); CHOL/HDL RATIO 3.9; CO2, Blood 29 mmol/L (21-32); Calcium, Blood 8.7 mg/dL (8.5-10.1); Chloride, Blood 108 mmol/L (98-108); Cholesterol 197 mg/dL (50-200); Creatinine, Blood 0.62 mg/dL (0.40-1.00); Globulin, Blood 3.2 g/dL (2.2-4.0); Glomerular Filtration Rate 95 (60-); Glucose, Blood 100 mg/dL (70-99); HDL Cholesterol 51 mg/dL (>39); LDL/HDL RATIO 2.5; Low Density Lipoprotein Chol 130 mg/dL (0-110); Potassium, Blood 4.1 mmol/L (3.5-5.5); Sodium, Blood 139 mmol/L (136-145); Total Protein, Blood 7.1 g/dL (6.4-8.2); Triglycerides 81 mg/dL (30-160); Very Low Density Lipoprot Chol 16 mg/dL (6-32)
== END | disposition home or self-care (01) ==
LOC: LAB SHORT 11:56
PROVIDERS: Student in an Organized Health Care Education/Training Program
DX: Z13.6 Encounter for screening for cardiovascular disorders (principal); F33.1 Major depressive disorder, recurrent, moderate; I10 Essential (primary) hypertension; N95.1 Menopausal and female climacteric states
CPT/HCPCS: 80053; 80061; 85025

== ENCOUNTER → 2024-10-22 | Outpatient (CLI) | payer MEDICARE, OTHER ==
[2024-10-22 16:44] LABS: BASOPHILS ABSOLUTE AUTO 0.04 K/mm3 (0.00-0.23); BASOPHILS PERCENT AUTO 1 % (0-2); EOSINOPHILS ABSOLUTE AUTO 0.24 K/mm3 (0.00-0.68); EOSINOPHILS PERCENT AUTO 4 % (0-6); Hematocrit 38.8 % (33.0-51.0); Hemoglobin 12.7 g/dL (11.5-16.0); IMMATURE GRAN ABSOLUTE AUTO 0.01 K/mm3 (0.00-0.10); IMMATURE GRAN PERCENT AUTO 0 % (0-1); LYMPHOCYTES ABSOLUTE AUTO 1.55 K/mm3 (0.84-5.20); LYMPHOCYTES PERCENT AUTO 29 % (21-46); MONOCYTES ABSOLUTE AUTO 0.46 K/mm3 (0.16-1.47); MONOCYTES PERCENT AUTO 9 % (4-13); Mean Corpuscular HGB Conc 32.7 g/dL (31.5-36.5); Mean Corpuscular Volume 95 fL (80-100); Mean Platelet Volume 10.7 fL (9.1-12.4); NEUTROPHILS PERCENT AUTO 58 % (41-73); Platelet Count 326 K/mm3 (150-400); RDW Coefficient Variation 12.8 % (11.7-14.2); RDW Standard Deviation 44.5 fL (35.1-46.3)
[2024-10-22 16:58] LABS: Albumin, Blood 3.6 g/dL (3.4-5.0); Bilirubin, Total 0.3 mg/dL (0.1-1.0); Bun/Creatinine Ratio 24.9 (12.0-20.0); Calcium, Blood 9.3 mg/dL (8.5-10.1); Creatinine, Blood 0.76 mg/dL (0.40-1.00); Globulin, Blood 3.5 g/dL (2.2-4.0); Potassium, Blood 3.9 mmol/L (3.5-5.5); Thyroid Stimulating Hormone 2.51 uIU/mL (0.360-4.800); Total Protein, Blood 7.1 g/dL (6.4-8.2)
== END ==
LOC: LAB SHORT 14:51 → LAB 14:51
PROVIDERS: Student in an Organized Health Care Education/Training Program
DX: I10 Essential (primary) hypertension (principal); F33.1 Major depressive disorder, recurrent, moderate; R79.89 Other specified abnormal findings of blood chemistry
CPT/HCPCS: 80053; 84443; 85025

== ENCOUNTER → 2024-11-25 | Outpatient (CLI) | payer MEDICARE, OTHER ==
[2024-11-26 17:44] LABS: Adenovirus F 40/41 Not Detected (NOT DETECT); Astrovirus Not Detected (NOT DETECT); Campylobacter Sp Not Detected (NOT DETECT); Cryptosporidium Not Detected (NOT DETECT); Cyclospora Cayetanensis Not Detected (NOT DETECT); E. Coli O157 Not Detected (NOT DETECT); Entamoeba Histolytica Not Detected (NOT DETECT); Enteroaggregative E. coli-EAEC Not Detected (NOT DETECT); Enteropathogenic E. coli-EPEC Not Detected (NOT DETECT); Enterotoxigenic E. coli-ETEC Not Detected (NOT DETECT); Giardia Lamblia Not Detected (NOT DETECT); Norovirus GI/GII Not Detected (NOT DETECT); Plesiomonas Shigelloides Not Detected (NOT DETECT); Rotavirus A Not Detected (NOT DETECT); Salmonella Sp Not Detected (NOT DETECT); Sapovirus Not Detected (NOT DETECT); Shiga Toxin-prod E. coli-STEC Not Detected (NOT DETECT); Shigella/Enteroin E. coli-EIEC Not Detected (NOT DETECT); Vibrio Cholerae Not Detected (NOT DETECT); Vibrio Sp Not Detected (NOT DETECT); Yersinia Enterocolitica Not Detected (NOT DETECT)
== END | disposition home or self-care (01) ==
LOC: LAB SHORT 19:55 → LAB 19:55
PROVIDERS: Nurse Practitioner
DX: R19.7 Diarrhea, unspecified (principal); R42 Dizziness and giddiness
CPT/HCPCS: 87507

== ENCOUNTER → 2025-06-28 | Outpatient (CLI) | payer MEDICARE, OTHER ==
[2025-06-28 13:39] LABS: BASOPHILS ABSOLUTE AUTO 0.04 K/mm3 (0.00-0.23); BASOPHILS PERCENT AUTO 0 % (0-2); EOSINOPHILS ABSOLUTE AUTO 0.27 K/mm3 (0.00-0.68); EOSINOPHILS PERCENT AUTO 3 % (0-6); Hematocrit 34.6 % (33.0-51.0); Hemoglobin 11.4 g/dL (11.5-16.0); IMMATURE GRAN ABSOLUTE AUTO 0.03 K/mm3 (0.00-0.10); IMMATURE GRAN PERCENT AUTO 0 % (0-1); LYMPHOCYTES ABSOLUTE AUTO 1.91 K/mm3 (0.84-5.20); LYMPHOCYTES PERCENT AUTO 20 % (21-46); MONOCYTES ABSOLUTE AUTO 0.76 K/mm3 (0.16-1.47); MONOCYTES PERCENT AUTO 8 % (4-13); Mean Corpuscular HGB Conc 32.9 g/dL (31.5-36.5); Mean Corpuscular Volume 94 fL (80-100); NEUTROPHILS ABSOLUTE AUTO 6.41 K/mm3 (1.96-9.15); NEUTROPHILS PERCENT AUTO 68 % (41-73); NRBC ABSOLUTE 0.00 K/mm3 (0.00-0.02); NRBC Auto 0.0 /100 WBC (0.0-0.2); Platelet Count 322 K/mm3 (150-400); RDW Coefficient Variation 13.4 % (11.7-14.2); RDW Standard Deviation 45.9 fL (35.1-46.3)
[2025-06-28 14:00] LABS: Alanine Aminotransfer (ALT/SGP 24.0 U/L (12-78); Albumin, Blood 3.6 g/dL (3.4-5.0); Albumin/Globulin Ratio 1.1 (0.8-1.8); Anion Gap 4.0 mmol/L (3-11); Aspartate Aminotrans (AST/SGOT 13.0 U/L (12-37); Bilirubin, Total 0.7 mg/dL (0.1-1.0); Blood Urea Nitrogen 13.0 mg/dL (8-24); CO2, Blood 30.0 mmol/L (21-32); Calcium, Blood 8.4 mg/dL (8.5-10.1); Chloride, Blood 108.0 mmol/L (98-108); Creatinine, Blood 0.69 mg/dL (0.40-1.00); Globulin, Blood 3.4 g/dL (2.2-4.0); Glucose, Blood 97.0 mg/dL (70-99); Potassium, Blood 3.9 mmol/L (3.5-5.5); Sodium, Blood 138.0 mmol/L (136-145); Thyroid Stimulating Hormone 2.75 uIU/mL (0.360-4.800); Total Protein, Blood 7.0 g/dL (6.4-8.2)
== END ==
LOC: LAB SHORT 11:20 → LAB 11:20
PROVIDERS: Nurse Practitioner Family
DX: R06.02 Shortness of breath (principal); R53.81 Other malaise
CPT/HCPCS: 80053; 83880; 84443; 85025

== ENCOUNTER → 2025-08-25 | Outpatient (CLI) | payer MEDICARE, OTHER ==
[2025-08-25 19:35] LABS: BASOPHILS ABSOLUTE AUTO 0.04 K/mm3 (0.00-0.23); BASOPHILS PERCENT AUTO 1 % (0-2); EOSINOPHILS ABSOLUTE AUTO 0.31 K/mm3 (0.00-0.68); EOSINOPHILS PERCENT AUTO 4 % (0-6); Hematocrit 35.0 % (33.0-51.0); Hemoglobin 11.7 g/dL (11.5-16.0); IMMATURE GRAN ABSOLUTE AUTO 0.02 K/mm3 (0.00-0.10); IMMATURE GRAN PERCENT AUTO 0 % (0-1); LYMPHOCYTES ABSOLUTE AUTO 1.80 K/mm3 (0.84-5.20); LYMPHOCYTES PERCENT AUTO 24 % (21-46); MONOCYTES ABSOLUTE AUTO 0.68 K/mm3 (0.16-1.47); MONOCYTES PERCENT AUTO 9 % (4-13); Mean Corpuscular HGB Conc 33.4 g/dL (31.5-36.5); Mean Corpuscular Volume 91 fL (80-100); NEUTROPHILS ABSOLUTE AUTO 4.65 K/mm3 (1.96-9.15); NEUTROPHILS PERCENT AUTO 62 % (41-73); NRBC ABSOLUTE 0.00 K/mm3 (0.00-0.02); NRBC Auto 0.0 /100 WBC (0.0-0.2); Platelet Count 343 K/mm3 (150-400); RDW Coefficient Variation 13.8 % (11.7-14.2); RDW Standard Deviation 46.2 fL (35.1-46.3)
[2025-08-25 20:22] LABS: Alanine Aminotransfer (ALT/SGP 21.0 U/L (12-78); Albumin, Blood 3.9 g/dL (3.4-5.0); Albumin/Globulin Ratio 1.2 (0.8-1.8); Anion Gap 7.0 mmol/L (3-11); Aspartate Aminotrans (AST/SGOT 9.0 U/L (12-37); Bilirubin, Total 0.3 mg/dL (0.1-1.0); Blood Urea Nitrogen 26.0 mg/dL (8-24); CO2, Blood 29.0 mmol/L (21-32); Calcium, Blood 9.0 mg/dL (8.5-10.1); Chloride, Blood 108.0 mmol/L (98-108); Creatinine, Blood 0.64 mg/dL (0.40-1.00); Ferritin, Serum 22.0 ng/mL (8-252); Globulin, Blood 3.2 g/dL (2.2-4.0); Glucose, Blood 75.0 mg/dL (70-99); Potassium, Blood 3.6 mmol/L (3.5-5.5); Sodium, Blood 140.0 mmol/L (136-145); Total Iron Binding Capacity 364.0 ug/dL (250-450); Total Protein, Blood 7.1 g/dL (6.4-8.2)
== END ==
LOC: LAB 15:20 → LAB SHORT 15:20
PROVIDERS: Student in an Organized Health Care Education/Training Program
DX: D64.9 Anemia, unspecified (principal)
CPT/HCPCS: 80053; 82728; 83540; 83550; 85025